=== PATIENT | female | born 1975 | race African-American/Black ===

== ENCOUNTER 2017-05-08 18:18 | Emergency (ER) | payer OTHER ==
[2017-05-08] MEDS: CYCLOBENZAPRINE 10 MG TABLET. PO ×2 (19:34)
== END 2017-05-08 20:06 | disposition home or self-care (01) ==
LOC: ER 18:18
DX: G89.29 Other chronic pain (principal); M54.42 Lumbago with sciatica, left side; M54.41 Lumbago with sciatica, right side; Z90.710 Acquired absence of both cervix and uterus
CPT/HCPCS: 72131; 99284